=== PATIENT | female | born 2005 | race Asian ===

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

== ENCOUNTER 2023-10-06 05:20 | Emergency (ER) | payer OTHER ==
[~2023-10-06] VITALS: Ht 152.4 cm; Wt 44.9 kg
[2023-10-06 05:25] VITALS: BP 103/70; PULSE 99; RESP 20; TEMP 97.5; O2SAT 99
[2023-10-06] MEDS ORDERED: ALBUTEROL SULFATE/IPRATROPIU 3 ML SOL IH ONE (05:35)
[2023-10-06] MEDS ORDERED: predniSONE 20 MG TAB PO ONE (05:35)
[2023-10-06] MEDS ORDERED: ALBUTEROL 0.083% 2.5 MG/3 ML NEBU INH ONE (05:35)
[2023-10-06 05:53] VITALS: PULSE 91; RESP 16; RESP 18; O2SAT 100
== END 2023-10-06 06:46 | disposition home or self-care (01) ==
LOC: MED 05:20
DX: R06.02 Shortness of breath (principal); J45.909 Unspecified asthma, uncomplicated
CPT/HCPCS: 94640; 99283; J7512; J7613